=== PATIENT | male | born 1965 | race Caucasian/White ===

== ENCOUNTER 2023-10-28 09:58 | Outpatient (CLI) | payer BC, SELFPAY ==
--- NOTE | ~2023-10-28 | CT_ITS ---
EXAMINATION: CT soft tissue neck w con DATE: 10/28/2023 10:27 INDICATION: Hearing loss. Right jaw swelling. TECHNIQUE: Computed tomography (CT) of the neck was performed with 75 mL Omnipaque-350 intravenous co ntrast. Automated exposure control and iterative reconstruction technique were employed. The dose-pravin gth product was 434.16 mGy-cm. COMPARISON: None FINDINGS: There are no pathologically enlarged lymph nodes. There is mild plaque in the proximal inte rnal carotid arteries with 0% stenosis relative to normal distal artery lumen diameters. There is mil d mucosal thickening in the paranasal sinuses. Right maxillary sinus is small. The mastoid air cells are normal. There is mild cervical spondylosis. IMPRESSION: 1. No etiology for the patient's symptoms. Reviewed, dictated and finalized at location A.
[2023-10-28 10:18] LABS: Estimated Glomerular Filt Rate > 60
== END 2023-10-28 09:59 ==
DX: M27.2 Inflammatory conditions of jaws (principal); H91.8X9 Other specified hearing loss, unspecified ear
CPT/HCPCS: 70491; Q9967